=== PATIENT | male | born 1990 | race Caucasian/White ===

== ENCOUNTER 2022-12-04 07:26 | Outpatient (REF) | payer OTHER, SELFPAY ==
[2022-12-04 11:09] LABS: MANUAL DIFF FLAG NO
[2022-12-04 11:32] LABS: Basophils Absolute Auto 0.1 X10*3/uL (0.0-0.2); Basophils Percent Auto 1.1 % (0-2); Eosinophils Absolute Auto 0.1 X10*3/uL (0.0-0.4); Eosinophils Percent Auto 2.1 % (0-4); Hematocrit 44.9 % (42.0-52.0); Imm Gran Abs Auto 0.01 X10*3/uL (0.00-0.03); Imm Gran Pct Auto 0.2 % (0.0-0.4); Lymphocytes Absolute Auto 1.4 X10*3/uL (1.2-4.9); Mean Corpuscular HGB Conc 35.6 g/dl (31.0-36.0); Mean Corpuscular Volume 89.8 fL (80.0-98.0); Mean Platelet Volume 11.6 fL (9.4-12.4); Monocytes Absolute Auto 0.5 X10*3/uL (0.1-1.2); Monocytes Percent Auto 10.5 % (2-11); Neutrophils Absolute Auto 2.7 x10*3/uL (2.0-8.3); Neutrophils Percent Auto 56.1 % (45-73); Platelet Count 232 X10*3/uL (160-400); Red Cell Distribution Width 11.7 % (11.0-16.0); White Blood Count 4.7 X10*3/uL (4.8-10.8)
== END 2022-12-04 07:27 | disposition home or self-care (01) ==
LOC: HO.WFDLDS 07:26
PROVIDERS: Visit Provider Physician Assistant
DX: R10.13 Epigastric pain (principal)
CPT/HCPCS: 36415; 85025

== ENCOUNTER 2022-12-25 09:07 | Outpatient (REF) | payer OTHER, SELFPAY | END 2022-12-25 09:08 | disposition home or self-care (01) | LOC: HO.WFDLDS 09:07 | PROVIDERS: Visit Provider Physician Assistant | DX: Z13.89 Encounter for screening for other disorder (principal) | CPT/HCPCS: 87338 ==

== ENCOUNTER 2023-01-21 11:45 | Outpatient (AMB) | payer OTHER, SELFPAY ==
--- NOTE | 2023-01-21 11:46 | A.OFFVIS_ITS ---
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 CC: He has pains in the Epigasctric region - it happens when he is either very hungry or after he eats. Denies any irregular bowel movements. 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 Allergies Seasonal Allergies Allergy (Mild, Verified 01/21/23 11:46) Unknown HPI Abdominal Pains - BICYCLE REPAIRMAN HPI Details 32 yr old m being called for assessment He had a hip arthroscopy August 2022 he was given naprosyn and pain medication--took for 2 weeks since then he has pain when hungry and after he eats too can be sharp in upper abdomen, RUQ and epigastric area can be 4/10 in severity pain is present few times every day and lasts for 20 mins or so no specific food makes pain worse when he takes carafate it makes him feel better no nasuea, or vomiting no GERD sx, no diarrhea or constipation he tried PPI for 1.5 months, and felt it made no difference, h pylori stool ag was neg (stopped PPI for 2 weeks) had a lot of tick bites in past, as he is an avid fisherman PMHx: None PSH: hip arthroscopy FHX: no FH of colon cancer or stomach issues SH: social drinking, non smoker, no THC use, ROS: Constitutional : No Weight loss, No Fever, No Chills ENT/Mouth : No sore throat, No Rhinorrhea Eyes: No Swelling, No Redness Cardiovascular : No Chest Pain, No SOB, No Edema Respiratory : No Cough, No Sputum, No Wheezing Gastrointestinal : see HPI Genitourinary : NO Dysuria, No Urinary Frequency, No Hematuria, No Urgency Musculoskeletal : No joint pain, No Myalgias, No Joint Swelling Skin : No Skin Lesions, No rash Neuro : No Weakness, No Numbness, No Dizziness, No Headache Psych : No Anxiety/Panic, No Depression Heme/Lymph: No Bruising, No Lymphadenopathy Endocrine : No Polyuria, No Polydipsia All other systems reviewed and are negative. EXAM: GENERAL: The patient is well developed and nontoxic--talking easily A/P: 1/ Gastritis, DILI-AIH, GB pathology, al pha gal syndrome PLAN: 1/ US 2/ EGD 3/ labs incl vitamin and LFT, CRP, alpha gal labs Assessment & Plan Assessment & Plan (1) Epigastric abdominal pain: Code(s): R10.13 - Epigastric pain Orders: Orders C Reactive Protein Today R10.13 - Epigastric pain Comprehensive Met. Panel Today K75.81 - Nonalcoholic steatohepatitis (FIELDS), R10.13 - Epigastric pain Ferritin Today R10.13 - Epigastric pain Other Ref Test - Misc Today R10.13 - Epigastric pain US abdomen comp w elastography Today R10.13 - Epigastric pain Complete Blood Count Auto Diff Today R10.13 - Epigastric pain Creatine Kinase Total Today R10.13 - Epigastric pain Vitamin B12 and Folate Today R10.13 - Epigastric pain Vitamin A Today R10.13 - Epigastric pain Vitamin B5 (Pantothenic Acid) Today R10.13 - Epigastric pain Vitamin B6 Today R10.13 - Epigastric pain Vitamin B1 Today R10.13 - Epigastric pain Histamine Plasma Today R10.13 - Epigastric pain Telehealth Telehealth Location of provider rendering services: practice address Location of patient: address on file Patient Identification confirmed using: Name, : Yes Telehealth method: video Patient verbally consented to treatment: Yes Patient verbally consented to billing insurance company: Yes Patient informed of any privacy concerns related to visit: Yes Minutes spent on Phone/Video with Pt.: 11 Coding Level of Care Code Tele New Pt Level 4 (29601) Diagnoses Epigastric abdominal pain R10.13
== END 2023-01-21 13:17 | disposition home or self-care (01) ==
LOC: HO.HGI 11:46
PROVIDERS: PCP Internal Medicine; Visit Provider Internal Medicine Gastroenterology
DX: R10.13 Epigastric pain (principal)
CPT/HCPCS: 99204

== ENCOUNTER → 2023-01-21 11:45 | Outpatient (BNVA) | payer OTHER, SELFPAY | PROVIDERS: PCP Internal Medicine; Visit Provider Internal Medicine Gastroenterology ==

== ENCOUNTER 2023-01-24 10:41 | Day surgery (SDC) | payer OTHER, SELFPAY ==
[2023-01-24 10:52] VITALS: BMI 22.7
--- NOTE | 2023-01-24 11:05 | HO.ANESPROP2 ---
[facility] Active Problems Active Problems: All Active Problems (Updated 01/21/23 @ 12:47 by Annabel Cole MD) Epigastric abdominal pain (Acute) Family History Family history of problems with anesthesia: No Surgical History Surgical History (Updated 01/24/23 @ 10:55 by Brooke Dumont RN) History of arthroscopy of hip History of Problems with Anesthesia: No Social History Social History Patient Tobacco Use Status: Former Tobacco user Are you DNR?: No Advance Directives: No Advance Directives Information Provided: Yes Nutrition Risks: No Nutritional Risk Meds Allergies Allergy/AdvReac Type Severity Reaction Status Date / Time Seasonal Allergies Allergy Mild Unknown Verified 01/24/23 10:55 Active Medications: Current Medications Lactated Ringer's (Lr) 1,000 mls @ 50 mls/hr IVCONT .Q20H ZAYRA Last Admin: 01/24/23 11:03 Dose: 50 mls/hr Home Medications Medication Instructions Recorded Confirmed Last Taken Type sucralfate 1 gram tablet 1 g PO QID 01/21/23 01/24/23 Unknown History Exam Exam Date and Time: January 24, 2023 1105 Height,Weight and Vital Signs: Height 5 ft 7 in Weight 65.771 kg Airway Mallampati Class: I TM Dist: >3cm Neck ROM: Full Assessment and Plan Assessment Anesthesia Assessment: Anesthesia Plan Discussed and Chart Reviewed Final Anesthetic Review Family History of Problems with Anesthesia: No History of Problems with Anesthesia: No NPO: Yes Final Preanesthetic Review: No Changes in Pt Med Stat, Meds/Allgs Chart Reviewed, Consent Obtained/Reviewed and Anes Risks/Benef Reviewed Patient Risk: Low Procedure Risk: Low Anesthetic Plan Anesthetic Plan: MAC: Disposition: Standard PACU
--- NOTE | 2023-01-24 11:07 | MHC.SHP ---
Pre-Procedural Eval Section A Date of Service: 01/24/23 Section B Chief Complaint: Epigastric pain Relevant Family History (Specify if Yes): No Relevant Social History: None Present Medications: see Short Stay Collaborative assessment Medical History: No relevant PMH History of Previous Operations: Relevant previous surgery/procedure and date(s) (hip arthroscopy) Allergies: Allergies Allergy/AdvReac Type Severity Reaction Status Date / Time Seasonal Allergies Allergy Mild Unknown Verified 01/24/23 10:55 Review of Systems Sugical H&P ROS: Negative: Constitution, Cardiovascular, Respiratory, Neurological, Psychiatric, Hem-Onc, Allergic/Immunologic, Gastrointestinal, Genitourinary, Musculoskeletal, Integumentary, Endocrine and Eyes/Ears/Nose/Throat Exam Surgical H&P Exam: Normal: HEENT, Normal: Heart, Normal: Lungs, Normal: Extremities, Normal: Abdomen, Normal: Skin and Normal: Neurological Plan Diagnosis/Plan: Unchanged I have reviewed the history and physical and performed a pertinent physical examination on my patient. No changes have occurred unless specified. Time Spent With Patient Time: Total time managing care of this patient today ____ minutes.
--- NOTE | 2023-01-24 11:08 | W.PM.OPN ---
Operative Note Operative Note Date of Service: 01/24/23 Narrative: Procedure Description: EGD Indication: epigastric pain Anesthesia: MAC FLEXIBLE TRANSORAL UPPER GASTROINTESTINAL ENDOSCOPY UPPER ENDOSCOPY Consent: Indications for the procedure and potential complications of bleeding, perforation, reaction to medications and missed diagnosis were discussed with the patient and informed consent was obtained. Instrument: Olympus GIF H 190 J mid size upper endoscope Monitoring: Vital signs and clinical assessment, continuous EKG monitoring, Pulse oximetry, Carbon Dioxide monitoring and blood pressure monitoring were done throughout the procedure. Procedure: The patient was placed in the left lateral decubitis position and pre-procedure medications were administered and a bite block was placed. The endoscope was inserted into the mouth and advanced under direct vision to the third part of duodenum. A careful inspection was made as the upper endoscope was withdrawn including a retroflexed examination of the proximal stomach; Findings and interventions are described below. Findings: Larynx:normal Esophagus: GE junction at 39 cm, diaphragm hiatus at 42 cm, consistent with 3 cm sliding hiatal hernia, mild esophagitis noted and schatzki ring with furrowing of the esophgeal mucosa, bx taken from GEJ, distal and proximal esophagus Stomach: Patchy gastric erythema. Biopsies were obtained. Grade 2 flap valve on retroflexed examination of the cardia. Duodenum: Normal bulb and descending duodenum, bx taken Intervention: Biopsies as noted above Impression/Findings: hiatal hernia schatzki ring esophagitis mild gastritis PLAN: cont with carafate for the moment if agrees try high dose PPi and titrate down after 3 months if h pylori pos then treat await US scan
[2023-01-24 11:11] VITALS: BP 145/90; PULSE 80; RESP 18; TEMP 36.6; O2SAT 98
[2023-01-24 12:08] VITALS: BP 142/100; PULSE 109; RESP 16; TEMP 36.1; O2SAT 97
[2023-01-24 12:23] VITALS: BP 134/88; PULSE 82; RESP 20; TEMP 36.9; O2SAT 100
== END 2023-01-24 13:02 | disposition home or self-care (01) ==
PROVIDERS: PCP Internal Medicine; Visit Provider Internal Medicine Gastroenterology
PROC: 0DJ08ZZ Inspection of Upper Intestinal Tract, Via Natural or Artificial Opening Endoscopic (ICD-10-PCS; CPT 43235; principal; 2023-01-24 14:50)
DX: K20.90 Esophagitis, unspecified without bleeding (principal); K22.2 Esophageal obstruction; K29.70 Gastritis, unspecified, without bleeding; K29.80 Duodenitis without bleeding; K44.9 Diaphragmatic hernia without obstruction or gangrene
CPT/HCPCS: 43239; 88305; 88342

== ENCOUNTER → 2023-01-24 10:41 | Outpatient (BNV) | payer OTHER, SELFPAY | PROVIDERS: PCP Internal Medicine; Visit Provider Internal Medicine Gastroenterology | DX: R10.13 Epigastric pain (principal); K20.90 Esophagitis, unspecified without bleeding; K29.70 Gastritis, unspecified, without bleeding; K22.2 Esophageal obstruction | CPT/HCPCS: 43239 ==

== ENCOUNTER 2023-01-29 06:08 | Outpatient (REF) | payer OTHER, SELFPAY ==
[2023-02-01 19:29] LABS: Vitamin A 54 mcg/dL (38-98)
[2023-02-02 15:13] LABS: Vitamin B6 31.9 ng/mL (2.1-21.7)
[2023-02-03 12:07] LABS: Vitamin B1 18 nmol/L (8-30)
[2023-02-04 16:14] LABS: Histamine Plasma <1.5 ng/mL (< OR = 1.8)
[2023-02-04 19:14] LABS: Vitamin B5 (Pantothenic Acid) <40 ng/mL (<275)
== END 2023-01-29 06:09 | disposition home or self-care (01) ==
LOC: HO.LAB 06:08
PROVIDERS: PCP Internal Medicine; Visit Provider Internal Medicine Gastroenterology
DX: R10.13 Epigastric pain (principal); K75.81 Nonalcoholic steatohepatitis (NASH)
CPT/HCPCS: 80053; 82550; 82607; 82728; 82746; 83088; 84207; 84425; 84590; 84591; 85025; 86003; 86008; 86140

== ENCOUNTER 2023-02-01 07:00 | Outpatient (RCR) | payer OTHER, SELFPAY | END 2023-03-01 15:42 | disposition home or self-care (01) | LOC: HO.PTWFD 07:00 | PROVIDERS: PCP Internal Medicine; Visit Provider Orthopaedic Surgery Sports Medicine | DX: Z98.890 Other specified postprocedural states (principal) | CPT/HCPCS: 97110; 97116; 97140; 97150; 97162; 97530; 97535 ==

== ENCOUNTER 2023-03-11 08:17 | Outpatient (REF) | payer OTHER, SELFPAY ==
--- NOTE | ~2023-03-11 | US_ITS ---
EXAMINATION: US COMPLETE ABDOMEN WITH LIVER ELASTOGRAPHY CLINICAL INFORMATION: Epigastric pain. COMPARISON: None available. TECHNIQUE: Real-time imaging of the abdominal viscera. Noninvasive ultrasound liver fibrosis assessment is performed using Jonnathan ElastPQ point quantification shear wave elastography (2D-SWE) with a C5-2 MHz transducer. Multiple elastography samples are obtained. FINDINGS: PANCREAS: Normal. The visualized pancreatic head and body are normal in appearance. The remainder of the pancreas is obscured from visualization by the overlying bowel gas. ABDOMINAL AORTA: The proximal, middle, and distal aortic segments are normal in caliber. INFERIOR VENA CAVA: Visualized portions are normal. LIVER: Normal. The liver demonstrates normal size, contour and echogenicity. No focal lesion or intrahepatic biliary duct dilatation. The right lobe measures 13.5 cm in length. The left lobe measures 10.5 cm in length. Portal flow is towards the liver (hepatopetal). Shear wave liver elastography median stiffness is 1.58 m/s (reference: normal median stiffness is 1.3 m/s or less). IQR/median stiffness to assess sampling precision is 0.06 (reference: good quality data set is IQR/median stiffness of 0.15 or less). GALLBLADDER: Normal. The gallbladder is physiologically distended without evidence of stones, sludge, polyps, wall thickening or pericholecystic fluid. COMMON BILE DUCT: Normal in caliber measuring 0.4 cm in diameter. RIGHT KIDNEY: Normal. No hydronephrosis. No renal calculi or focal parenchymal lesions. The kidney measures 11.0 cm in maximum dimension. LEFT KIDNEY: Normal. No hydronephrosis. No renal calculi or focal parenchymal lesions. The kidney measures 10.8 cm in maximum dimension. SPLEEN: Normal. The spleen measures 12.3 cm in maximum dimension. FREE FLUID: None. US/US abdomen comp w elastography IMPRESSION: 1. There is generalized increase in hepatic echotexture, consistent with fatty infiltration or hepatocellular disease. Please correlate clinically. No focal hepatic mass or intrahepatic biliary dilatation is seen. 2. Liver elastography: In the absence of other known clinical signs, measurements rule out compensated advanced chronic liver disease. If there are known clinical signs, further testing may be needed for confirmation. REFERENCE: Society of Radiologists in Ultrasound Liver Stiffness Thresholds (2020): LIVER STIFFNESS THRESHOLDS: *Liver Stiffness equal or less than 1.3 m/s: High probability of being normal. *Liver Stiffness less than 1.7 m/s: In the absence of other known clinical signs, rules out compensated advanced chronic liver disease. *Liver Stiffness 1.7-2.1 m/s: Suggestive of compensated advanced chronic liver disease but need further test for confirmation. *Liver Stiffness over 2.1 m/s: Rules in compensated advanced chronic liver disease. *Liver Stiffness over 2.4 m/s: Suggestive of clinically significant portal hypertension. QUALITY OF DATA SET: *IQR/Median value equal or less than 0.15 implies a quality data set. *IQR/Median value over 0.15 implies a poor quality data set. SIGNIFICANT CHANGE FROM PRIOR EXAM: Significant change if liver stiffness measurement is 10% or greater from prior exam. OTHER CONSIDERATIONS: The stage of liver fibrosis may be overestimated in the setting of acute hepatitis, liver inflammation, elevated liver function tests, hepatic vascular congestion, obstructive cholestasis, non-fasting state, and infiltrative diseases such as amyloidosis and lymphoma. In some patients with NAFLD, the liver stiffness thresholds for compensated advanced chronic liver disease may be lower. In causes other than viral hepatitis and NAFLD, liver stiffness thresholds are not well established.
== END 2023-03-11 08:18 | disposition home or self-care (01) ==
LOC: HO.US 08:17
PROVIDERS: PCP Internal Medicine; Visit Provider Internal Medicine Gastroenterology
DX: R10.13 Epigastric pain (principal)
CPT/HCPCS: 76705; 76981

== ENCOUNTER 2023-09-19 07:00 | Outpatient (RCR) | payer OTHER, SELFPAY | END 2024-03-02 07:49 | disposition home or self-care (01) | LOC: HO.PTWFD 07:00 | PROVIDERS: PCP Internal Medicine; Visit Provider Orthopaedic Surgery Sports Medicine | DX: S73.102D Unspecified sprain of left hip, subsequent encounter (principal); S73.101D Unspecified sprain of right hip, subsequent encounter | CPT/HCPCS: 97110; 97162 ==